=== PATIENT | female | born 1980 | race Caucasian/White ===

== ENCOUNTER 2020-08-08 17:03 | Emergency (ER) | payer MEDICAID, OTHER ==
[~2020-08-08] VITALS: Ht 149.9 cm; Wt 87.5 kg
[~2020-08-08 17:03] MED LIST: ATR0.5NEB IH; ORPH100T2 PO
[2020-08-08] MEDS ORDERED: diphenhydrAMINE 50 mg/ml inj IM ONE (18:35)
[2020-08-08 19:54] VITALS: BP 113/75
== END 2020-08-08 19:56 | disposition home or self-care (01) ==
LOC: ER 17:04
DX: T50.905A Adverse effect of unspecified drugs, medicaments and biological substances, initial encounter (principal); R42 Dizziness and giddiness; R00.0 Tachycardia, unspecified; Z90.89 Acquired absence of other organs; Z98.890 Other specified postprocedural states; Z88.1 Allergy status to other antibiotic agents; Z88.8 Allergy status to other drugs, medicaments and biological substances; Z79.899 Other long term (current) drug therapy; Y92.89 Other specified places as the place of occurrence of the external cause
CPT/HCPCS: 93005; 96372; 99283; J1200